=== PATIENT | male | born 1970 | race Caucasian/White ===

== ENCOUNTER 2020-01-04 22:33 | Observation (INO) ==
[2020-01-04] MEDS ORDERED: ONDANSETRON 4 MG/2 ML VIAL IV ONE (23:48)
[2020-01-04] MEDS: HYDROmorphone* 2 MG/ML VIAL IV PRN (23:56)
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
[2020-01-05] MEDS ORDERED: ONDANSETRON 4 MG/2 ML VIAL IV PRN (00:49)
[2020-01-05] MEDS ORDERED: PROMETHAZINE 25 MG/ML VIAL IM PRN (00:49)
[2020-01-05] MEDS ORDERED: NALOXONE HCL 0.4 MG/ML VIAL IV PRN (00:49)
[2020-01-05] MEDS ORDERED: ceFAZolin 1 GM VIAL IV SCH (01:00)
[2020-01-05] MEDS ORDERED: 0.9 % SODIUM CHLORIDE 1,000 ML IV SCH (01:00)
[2020-01-05 02:10] LABS: Basophils # (Auto) 0.11 K/mcL (0.00-0.30); Eosinophils # (Auto) 0.19 K/mcL (0.00-0.70); Eosinophils % (Auto) 1.8 % (0.0-7.0); Hematocrit 33.7 % (40.1-51.0); Hemoglobin 11.3 g/dL (13.7-17.5); Mean Corpuscular HGB Conc 33.5 g/dL (31.0-36.0); Monocytes # (Auto) 0.56 K/mcL (0.10-0.90); Monocytes % (Auto) 5.2 % (1.0-12.0); Platelet Count 285 K/mcL (140-440); RBC 4.01 M/mcL (4.63-6.08); Red Cell Distribution Width 13.1 % (11.5-14.5); WBC 10.8 K/mcL (4.50-11.00)
[2020-01-05 02:28] LABS: ALT/SGPT 20 U/l (0-40); AST/SGOT 22 U/l (0-37); Albumin 4.1 gm/dL (3.2-5.2); Albumin/Globulin Ratio 1.5 (1.0-2.3); Alkaline Phosphatase 103 U/L (39-117); Bilirubin,Total 0.5 mg/dL (0.0-1.0); Blood Urea Nitrogen 18 mg/dl (6-20); Calcium 9.1 mg/dl (8.6-10.4); Carbon Dioxide 25 mmol/L (22-30); Chloride 101 mmol/L (96-108); Globulin 2.8 gm/dL (2.2-3.7); Glomerular Filtration Rate 100; Glucose 110 mg/dL (70-105)
[2020-01-05] MEDS: HYDROmorphone* 2 MG/ML VIAL IV PRN (02:45)
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
== END 2020-01-05 04:50 | disposition left against medical advice (07) ==
LOC: ED 22:33 → MEDSUR 22:33
PROVIDERS: ADMIT Orthopaedic Surgery Sports Medicine; ATTEND Orthopaedic Surgery Sports Medicine